=== PATIENT | male | born 1940 | race Caucasian/White ===

== ENCOUNTER 2023-04-05 12:12 | Emergency (ER) | payer OTHER, MEDICAID ==
[~2023-04-05] VITALS: Ht 185.4 cm; Wt 86.4 kg
[~2023-04-05 12:12] MED LIST: DIAZ5TAB PO
[2023-04-05 12:14] VITALS: TEMP 98.4
[2023-04-05 13:00] LABS: BASOPHILS % (AUTO) 0.3 % (0-1); EOSINOPHILS # (AUTO) 0.1 X10'3 (0-0.9); EOSINOPHILS % (AUTO) 1.5 % (0-6); HEMATOCRIT 45.3 % (42.0-52.0); HEMOGLOBIN 15.2 g/dl (14.0-17.9); LYMPHOCYTES % (AUTO) 13.9 % (21-51); MEAN CORPUSCULAR HEMOGLOBIN 31.7 PG (27.0-31.0); MEAN CORPUSCULAR HGB CONC 33.6 g/dL (33.0-36.5); MEAN CORPUSCULAR VOLUME 94.3 FL (78-98); MEAN PLATELET VOLUME 8.3 FL (7.4-10.4); MONOCYTES # (AUTO) 0.7 X10'3 (0-0.9); MONOCYTES % (AUTO) 10.6 % (2-12); NEUTROPHILS # (AUTO) 5.2 X10'3 (1.8-7.7); NEUTROPHILS % (AUTO) 73.7 % (42-75); PLATELET COUNT 290 X10'3 (140-440); RED CELL DISTRIBUTION WIDTH 12.5 % (11.5-14.5); WHITE BLOOD COUNT 7.1 X10'3 (4.5-11.0)
[2023-04-05 13:02] LABS: ALANINE AMINOTRANSFERASE 26 U/L (12-78); ALBUMIN 4.1 G/DL (3.4-5.0); ALBUMIN/GLOBULIN RATIO 1.1 (1.1-1.5); ALKALINE PHOSPHATASE 84 IU/L (46-116); ANION GAP 10 (8-16); ASPARTATE AMINO TRANSFERASE 24 U/L (10-37); BLOOD UREA NITROGEN 22 MG/DL (7-18); BUN/CREATININE RATIO 13.5 (10.0-20.0); CALCIUM 9.5 MG/DL (8.5-10.1); CHLORIDE 101 MMOL/L (99-107); CREATININE 1.63 MG/DL (0.60-1.10); GLUCOSE 118 MG/DL (70-104); POTASSIUM 4.5 MMOL/L (3.5-5.1); SODIUM 136 MMOL/L (135-145); TOTAL CARBON DIOXIDE 25.4 MMOL/L (24-32); TOTAL PROTEIN 7.8 G/DL (6.4-8.2); eCRCL 40 ML/MIN; eGFR 41 ML/MIN
[2023-04-05 14:02] LABS: CLARITY,URINE CLOUDY (Clear); COLOR,URINE RED (Yellow)
[2023-04-05 14:03] LABS: UA COLLECTION TYPE CLN CATCH MIDSTREAM
[2023-04-05 14:21] LABS: RBC,URINE TNTC /HPF (0-2)
[2023-04-05 14:26] VITALS: BP 149/94; PULSE 66; RESP 18; O2SAT 97
[2023-04-05 14:37] LABS: BACTERIA,URINE FEW /HPF (Neg); MUCUS STRANDS MANY /LPF (Neg); RENAL CELLS, URINE FEW /HPF; SQUAMOUS EPITHELIAL CELL,UR FEW /LPF (FEW); WBC CLUMPS,URINE FEW /HPF (NEGATIVE)
[2023-04-05 14:38] LABS: TRANSITIONAL EPI CELLS,URINE MANY /HPF
[2023-04-05] MEDS ORDERED: AMOX-117 PO (15:00)
[2023-04-05] MEDS ORDERED: amox tr/potassium clavulanate 875/125mg TAB PO ONE (15:05)
== END 2023-04-05 15:14 | disposition home or self-care (01) ==
LOC: ER 12:13
DX: N39.0 Urinary tract infection, site not specified (principal); Z79.899 Other long term (current) drug therapy; Z79.2 Long term (current) use of antibiotics
CPT/HCPCS: 36415; 80053; 81001; 85025; 87088; 99283

== ENCOUNTER 2023-04-07 14:26 | Emergency (ER) | payer OTHER, MEDICAID ==
[~2023-04-07] VITALS: Ht 182.9 cm; Wt 86.4 kg
[~2023-04-07 14:26] MED LIST changes: +AMOX-117 PO
[2023-04-07 14:41] VITALS: BP 128/83; PULSE 76; RESP 18; TEMP 99.6; O2SAT 97
== END 2023-04-07 23:37 | disposition left against medical advice (07) ==
LOC: ER 14:26
DX: R31.9 Hematuria, unspecified (principal); Z53.21 Procedure and treatment not carried out due to patient leaving prior to being seen by health care provider
CPT/HCPCS: 99281

== ENCOUNTER 2023-04-14 12:03 | Emergency (ER) | payer OTHER, MEDICAID ==
[~2023-04-14] VITALS: Ht 182.9 cm; Wt 86.4 kg
[~2023-04-14 12:03] MED LIST changes: -AMOX-117 PO
[2023-04-14 12:26] VITALS: TEMP 98.4
[2023-04-14 13:10] LABS: BASOPHILS % (AUTO) 0.5 % (0-1); EOSINOPHILS # (AUTO) 0.1 X10'3 (0-0.9); EOSINOPHILS % (AUTO) 1.1 % (0-6); HEMATOCRIT 43.4 % (42.0-52.0); HEMOGLOBIN 14.2 g/dl (14.0-17.9); LYMPHOCYTES # (AUTO) 0.9 X10'3 (1.1-4.8); LYMPHOCYTES % (AUTO) 14.1 % (21-51); MEAN CORPUSCULAR HGB CONC 32.7 g/dL (33.0-36.5); MEAN CORPUSCULAR VOLUME 94.7 FL (78-98); MONOCYTES # (AUTO) 0.7 X10'3 (0-0.9); MONOCYTES % (AUTO) 10.5 % (2-12); NEUTROPHILS # (AUTO) 4.7 X10'3 (1.8-7.7); NEUTROPHILS % (AUTO) 73.8 % (42-75); PLATELET COUNT 274 X10'3 (140-440); RED BLOOD COUNT 4.59 X10'6 (4.70-6.10); RED CELL DISTRIBUTION WIDTH 12.8 % (11.5-14.5); WHITE BLOOD COUNT 6.4 X10'3 (4.5-11.0)
[2023-04-14 13:21] LABS: CLARITY,URINE TURBID (Clear); COLOR,URINE RED (Yellow); UA COLLECTION TYPE VOIDED
[2023-04-14 13:23] LABS: RBC,URINE TNTC /HPF (0-2)
[2023-04-14 13:24] LABS: WBC,URINE 50-100 /HPF (0-4)
[2023-04-14 13:24] LABS: ALANINE AMINOTRANSFERASE 21 U/L (12-78); ALBUMIN 3.7 G/DL (3.4-5.0); ALKALINE PHOSPHATASE 73 IU/L (46-116); ANION GAP 9 (8-16); ASPARTATE AMINO TRANSFERASE 17 U/L (10-37); BILIRUBIN,TOTAL 1.1 MG/DL (0.1-1.0); BLOOD UREA NITROGEN 26 MG/DL (7-18); BUN/CREATININE RATIO 16.9 (10.0-20.0); CHLORIDE 102 MMOL/L (99-107); CREATININE 1.54 MG/DL (0.60-1.10); GLUCOSE 104 MG/DL (70-104); LIPASE 67 U/L (73-393); POTASSIUM 4.3 MMOL/L (3.5-5.1); SODIUM 137 MMOL/L (135-145); TOTAL CARBON DIOXIDE 26.3 MMOL/L (24-32); TOTAL PROTEIN 7.4 G/DL (6.4-8.2); eCRCL 42 ML/MIN; eGFR 44 ML/MIN
[2023-04-14 13:26] LABS: BACTERIA,URINE NONE SEEN /HPF (Neg); MUCUS STRANDS NONE SEEN /LPF (Neg); SQUAMOUS EPITHELIAL CELL,UR MODERATE /LPF (FEW)
[2023-04-14] MEDS ORDERED: oxyCODONE/APAP 5-325mg tablet PO ONE (15:35)
[2023-04-14] MEDS ORDERED: NO HOME MEDS (16:59)
[2023-04-14] MEDS ORDERED: ciprofloxacin 250mg tablet PO ONE (19:20)
[2023-04-14] MEDS ORDERED: phenazopyridine 100mg tablet PO ONE (19:20)
[2023-04-14] MEDS ORDERED: CefTRIAXone 1000mg IM Kit (w/lidocaine diluent) IM ONE (19:20)
[2023-04-14] MEDS ORDERED: CIPR-202 PO (19:26)
[2023-04-14] MEDS ORDERED: PHEN-824 PO (19:26)
[2023-04-14] MEDS ORDERED: normal saline 1000ml 1,000 ML IVB ONE (19:45)
[2023-04-14 20:06] VITALS: BP 154/89; PULSE 89; RESP 18; O2SAT 100
== END 2023-04-14 20:12 | disposition home or self-care (01) ==
LOC: ER 12:04
DX: N39.0 Urinary tract infection, site not specified (principal); Z79.899 Other long term (current) drug therapy
CPT/HCPCS: 36415; 80053; 81001; 83690; 85025; 87088; 96372; 99283; J0696

== ENCOUNTER 2023-05-16 13:55 | Emergency (ER) | payer OTHER, MEDICAID ==
[~2023-05-16] VITALS: Ht 182.9 cm; Wt 75.8 kg
[~2023-05-16 13:55] MED LIST changes: -DIAZ5TAB PO; +NO HOME MEDS; +PHEN-824 PO
[2023-05-16 14:34] LABS: BILIRUBIN,URINE SMALL (Neg); CLARITY,URINE CLOUDY (Clear); COLOR,URINE YELLOW (Yellow); GLUCOSE, URINE NEGATIVE (Neg); KETONES,URINE TRACE mg/dl (Neg); LEUKOCYTE ESTERASE ,URINE TRACE (Neg); NITRITES, URINE NEGATIVE (Neg); OCCULT BLOOD,URINE LARGE (Neg); PH,URINE 5.5 (4.8-8.0); PROTEIN,URINE 100 mg/dl (Neg)
[2023-05-16 14:35] LABS: BASOPHILS % (AUTO) 0.2 % (0-1); EOSINOPHILS # (AUTO) 0.1 X10'3 (0-0.9); EOSINOPHILS % (AUTO) 1.4 % (0-6); HEMATOCRIT 38.6 % (42.0-52.0); HEMOGLOBIN 12.7 g/dl (14.0-17.9); LYMPHOCYTES # (AUTO) 0.9 X10'3 (1.1-4.8); LYMPHOCYTES % (AUTO) 12.6 % (21-51); MEAN CORPUSCULAR HEMOGLOBIN 30.8 PG (27.0-31.0); MEAN CORPUSCULAR VOLUME 93.3 FL (78-98); MEAN PLATELET VOLUME 7.3 FL (7.4-10.4); MONOCYTES # (AUTO) 0.9 X10'3 (0-0.9); NEUTROPHILS # (AUTO) 5.4 X10'3 (1.8-7.7); NEUTROPHILS % (AUTO) 73.8 % (42-75); PLATELET COUNT 284 X10'3 (140-440); RED BLOOD COUNT 4.14 X10'6 (4.70-6.10); RED CELL DISTRIBUTION WIDTH 12.4 % (11.5-14.5); WHITE BLOOD COUNT 7.3 X10'3 (4.5-11.0)
[2023-05-16 14:35] LABS: UA COLLECTION TYPE CLN CATCH MIDSTREAM
[2023-05-16 14:42] LABS: MUCUS STRANDS MANY /LPF (Neg); RBC,URINE TNTC /HPF (0-2); SQUAMOUS EPITHELIAL CELL,UR FEW /LPF (FEW); TRANSITIONAL EPI CELLS,URINE MANY /HPF
[2023-05-16 14:43] LABS: WBC,URINE TNTC /HPF (0-4)
[2023-05-16 14:44] LABS: AMORPHOUS URATES 1+; BACTERIA,URINE FEW /HPF (Neg)
[2023-05-16 14:49] LABS: ALANINE AMINOTRANSFERASE 20 U/L (12-78); ALBUMIN 3.2 G/DL (3.4-5.0); ALBUMIN/GLOBULIN RATIO 0.8 (1.1-1.5); ALKALINE PHOSPHATASE 83 IU/L (46-116); ANION GAP 10 (8-16); ASPARTATE AMINO TRANSFERASE 20 U/L (10-37); BILIRUBIN,TOTAL 0.4 MG/DL (0.1-1.0); BLOOD UREA NITROGEN 24 MG/DL (7-18); BUN/CREATININE RATIO 14.5 (10.0-20.0); CALCIUM 8.9 MG/DL (8.5-10.1); CHLORIDE 104 MMOL/L (99-107); CREATININE 1.66 MG/DL (0.60-1.10); GLUCOSE 122 MG/DL (70-104); SODIUM 139 MMOL/L (135-145); TOTAL CARBON DIOXIDE 25.4 MMOL/L (24-32); TOTAL PROTEIN 7.3 G/DL (6.4-8.2); eCRCL 38 ML/MIN; eGFR 40 ML/MIN
[2023-05-16 14:50] LABS: LIPASE 25 U/L (16-77)
[2023-05-16] MEDS ORDERED: CEFD300C3 PO (16:51)
[2023-05-16 17:31] VITALS: BP 127/75; PULSE 68; RESP 18; TEMP 97.4; O2SAT 97
== END 2023-05-16 17:33 | disposition home or self-care (01) ==
LOC: ER 13:56
DX: N39.0 Urinary tract infection, site not specified (principal)
CPT/HCPCS: 36415; 80053; 81001; 83690; 85025; 87088; 99283

== ENCOUNTER 2023-05-31 13:00 | Emergency (ER) | payer OTHER, MEDICAID ==
[~2023-05-31] VITALS: Ht 182.9 cm; Wt 75.9 kg
[~2023-05-31 13:00] MED LIST changes: +CEFD300C3 PO
[2023-05-31 14:25] LABS: CLARITY,URINE TURBID (Clear); COLOR,URINE AMBER (Yellow); UA COLLECTION TYPE CLN CATCH MIDSTREAM
[2023-05-31 14:30] LABS: SQUAMOUS EPITHELIAL CELL,UR FEW /LPF (FEW)
[2023-05-31 14:31] LABS: CAL OXALATE CRYSTALS 4+ /HPF (NEGATIVE); RBC,URINE TNTC /HPF (0-2); TRANSITIONAL EPI CELLS,URINE MANY /HPF; WBC,URINE TNTC /HPF (0-4)
[2023-05-31 14:32] LABS: HYALINE CASTS >30 /LPF (NEGATIVE); MUCUS STRANDS MANY /LPF (Neg)
[2023-05-31 14:33] LABS: BACTERIA,URINE FEW /HPF (Neg)
[2023-05-31 14:43] LABS: BASOPHILS % (AUTO) 0.2 % (0-1); EOSINOPHILS # (AUTO) 0.1 X10'3 (0-0.9); EOSINOPHILS % (AUTO) 0.8 % (0-6); HEMATOCRIT 39.8 % (42.0-52.0); HEMOGLOBIN 13.2 g/dl (14.0-17.9); LYMPHOCYTES # (AUTO) 0.9 X10'3 (1.1-4.8); LYMPHOCYTES % (AUTO) 9.4 % (21-51); MEAN CORPUSCULAR HEMOGLOBIN 30.5 PG (27.0-31.0); MEAN CORPUSCULAR HGB CONC 33.2 g/dL (33.0-36.5); MEAN CORPUSCULAR VOLUME 91.9 FL (78-98); MEAN PLATELET VOLUME 7.6 FL (7.4-10.4); MONOCYTES # (AUTO) 0.8 X10'3 (0-0.9); NEUTROPHILS # (AUTO) 7.7 X10'3 (1.8-7.7); NEUTROPHILS % (AUTO) 81.6 % (42-75); PLATELET COUNT 356 X10'3 (140-440); RED BLOOD COUNT 4.33 X10'6 (4.70-6.10); RED CELL DISTRIBUTION WIDTH 12.5 % (11.5-14.5); WHITE BLOOD COUNT 9.5 X10'3 (4.5-11.0)
[2023-05-31 15:00] LABS: ALANINE AMINOTRANSFERASE 23 U/L (12-78); ALBUMIN 3.6 G/DL (3.4-5.0); ALBUMIN/GLOBULIN RATIO 0.9 (1.1-1.5); ALKALINE PHOSPHATASE 91 IU/L (46-116); ANION GAP 9 (8-16); ASPARTATE AMINO TRANSFERASE 16 U/L (10-37); BILIRUBIN,TOTAL 0.5 MG/DL (0.1-1.0); BLOOD UREA NITROGEN 26 MG/DL (7-18); BUN/CREATININE RATIO 15.2 (10.0-20.0); CALCIUM 9.5 MG/DL (8.5-10.1); CHLORIDE 103 MMOL/L (99-107); CREATININE 1.71 MG/DL (0.60-1.10); GLUCOSE 106 MG/DL (70-104); SODIUM 138 MMOL/L (135-145); TOTAL CARBON DIOXIDE 26.4 MMOL/L (24-32); TOTAL PROTEIN 7.8 G/DL (6.4-8.2); eCRCL 37 ML/MIN; eGFR 39 ML/MIN
[2023-05-31 18:09] VITALS: BP 164/87; PULSE 77; TEMP 97.9; O2SAT 99
[2023-05-31 18:19] VITALS: RESP 16
[2023-05-31] MEDS ORDERED: CefTRIAXone 2gm/D5W 50ml BAG 50 ML IV ONE (18:25)
[2023-05-31] MEDS ORDERED: ciprofloxacin 250mg tablet PO ONE (18:45)
[2023-05-31] MEDS ORDERED: CIPR-259 PO (18:49)
== END 2023-05-31 19:21 | disposition home or self-care (01) ==
LOC: ER 13:01
DX: R31.9 Hematuria, unspecified (principal); R10.30 Lower abdominal pain, unspecified; Z98.890 Other specified postprocedural states; Z79.899 Other long term (current) drug therapy
CPT/HCPCS: 36415; 74176; 80053; 81001; 85025; 87088; 99284

== ENCOUNTER 2023-08-01 16:13 | Emergency (ER) | payer OTHER, MEDICAID ==
[~2023-08-01] VITALS: Ht 185.4 cm; Wt 86.4 kg
[2023-08-01 16:29] VITALS: TEMP 97.1
[2023-08-01 18:04] LABS: BASOPHILS % (AUTO) 0.2 % (0-1); EOSINOPHILS # (AUTO) 0.1 X10'3 (0-0.9); EOSINOPHILS % (AUTO) 0.7 % (0-6); HEMATOCRIT 33.5 % (42.0-52.0); HEMOGLOBIN 11.1 g/dl (14.0-17.9); LYMPHOCYTES # (AUTO) 0.6 X10'3 (1.1-4.8); LYMPHOCYTES % (AUTO) 7.3 % (21-51); MEAN CORPUSCULAR HEMOGLOBIN 29.3 PG (27.0-31.0); MEAN CORPUSCULAR HGB CONC 33.2 g/dL (33.0-36.5); MEAN CORPUSCULAR VOLUME 88.1 FL (78-98); MEAN PLATELET VOLUME 7.2 FL (7.4-10.4); MONOCYTES # (AUTO) 0.6 X10'3 (0-0.9); MONOCYTES % (AUTO) 7.1 % (2-12); NEUTROPHILS # (AUTO) 6.9 X10'3 (1.8-7.7); NEUTROPHILS % (AUTO) 84.7 % (42-75); PLATELET COUNT 322 X10'3 (140-440); RED BLOOD COUNT 3.81 X10'6 (4.70-6.10); WHITE BLOOD COUNT 8.2 X10'3 (4.5-11.0)
[2023-08-01 18:05] LABS: APTT 32 SECONDS (22-32); INR 1.1 INR; PROTHROMBIN TIME 11.5 SECONDS (9.0-12.0)
[2023-08-01 18:08] LABS: ALANINE AMINOTRANSFERASE 14 U/L (12-78); ALBUMIN 3.1 G/DL (3.4-5.0); ALBUMIN/GLOBULIN RATIO 0.8 (1.1-1.5); ALKALINE PHOSPHATASE 94 IU/L (46-116); ANION GAP 5 (8-16); ASPARTATE AMINO TRANSFERASE 19 U/L (10-37); BILIRUBIN,TOTAL 0.3 MG/DL (0.1-1.0); BLOOD UREA NITROGEN 31 MG/DL (7-18); BUN/CREATININE RATIO 20.1 (10.0-20.0); CALCIUM 9.2 MG/DL (8.5-10.1); CHLORIDE 103 MMOL/L (99-107); CREATININE 1.54 MG/DL (0.60-1.10); GLUCOSE 155 MG/DL (70-104); POTASSIUM 4.7 MMOL/L (3.5-5.1); SODIUM 137 MMOL/L (135-145); TOTAL CARBON DIOXIDE 28.8 MMOL/L (24-32); TOTAL PROTEIN 7.2 G/DL (6.4-8.2); eCRCL 43 ML/MIN; eGFR 44 ML/MIN
[2023-08-01 22:23] VITALS: BP 115/87; PULSE 83; RESP 14; O2SAT 98
[2023-08-02 00:07] LABS: BILIRUBIN,URINE SMALL (Neg); CLARITY,URINE CLOUDY (Clear); COLOR,URINE AMBER (Yellow); GLUCOSE, URINE NEGATIVE (Neg); KETONES,URINE TRACE mg/dl (Neg); LEUKOCYTE ESTERASE ,URINE TRACE (Neg); NITRITES, URINE NEGATIVE (Neg); OCCULT BLOOD,URINE LARGE (Neg); PH,URINE 5.5 (4.8-8.0); PROTEIN,URINE >=300 mg/dl (Neg)
[2023-08-02 00:08] LABS: UA COLLECTION TYPE CLN CATCH MIDSTREAM
[2023-08-02 00:34] LABS: BACTERIA,URINE FEW /HPF (Neg); CAL OXALATE CRYSTALS 1+ /HPF (NEGATIVE); MUCUS STRANDS MODERATE /LPF (Neg); RBC,URINE 20-50 /HPF (0-2); SQUAMOUS EPITHELIAL CELL,UR FEW /LPF (FEW); WBC,URINE 30-50 /HPF (0-4)
[2023-08-02] MEDS ORDERED: CEPH-585 PO (00:37)
[2023-08-02] MEDS ORDERED: cephalexin 250mg capsule PO ONE (00:40)
== END 2023-08-02 00:50 | disposition home or self-care (01) ==
LOC: ER 16:14
DX: N39.0 Urinary tract infection, site not specified (principal); R31.9 Hematuria, unspecified; I10 Essential (primary) hypertension; Z79.2 Long term (current) use of antibiotics; Z79.899 Other long term (current) drug therapy
CPT/HCPCS: 36415; 80053; 81001; 81003; 85025; 85610; 85730; 87088; 99283

== ENCOUNTER 2023-08-08 10:25 | Emergency (ER) | payer MEDICARE, MEDICAID ==
[~2023-08-08] VITALS: Ht 182.9 cm; Wt 79.9 kg
[~2023-08-08 10:25] MED LIST changes: +CEPH-585 PO
[2023-08-08 11:26] LABS: BILIRUBIN,URINE NEGATIVE (Neg); CLARITY,URINE CLOUDY (Clear); COLOR,URINE YELLOW (Yellow); GLUCOSE, URINE NEGATIVE (Neg); KETONES,URINE TRACE mg/dl (Neg); LEUKOCYTE ESTERASE ,URINE SMALL (Neg); NITRITES, URINE NEGATIVE (Neg); OCCULT BLOOD,URINE MODERATE (Neg); PH,URINE 5.5 (4.8-8.0); PROTEIN,URINE 100 mg/dl (Neg); UROBILINOGEN,URINE 0.2 E.U/dL (0.2-1.0)
[2023-08-08 11:30] LABS: UA COLLECTION TYPE CLN CATCH MIDSTREAM
[2023-08-08 11:31] LABS: WBC,URINE TNTC /HPF (0-4)
[2023-08-08 11:32] LABS: BACTERIA,URINE FEW /HPF (Neg); MUCUS STRANDS NONE SEEN /LPF (Neg); SQUAMOUS EPITHELIAL CELL,UR MODERATE /LPF (FEW)
[2023-08-08 11:33] LABS: TRANSITIONAL EPI CELLS,URINE FEW /HPF
[2023-08-08 12:26] VITALS: BP 130/67; PULSE 80; RESP 16; O2SAT 97
[2023-08-08] MEDS ORDERED: ciprofloxacin 250mg tablet PO ONE (13:35)
[2023-08-08] MEDS ORDERED: CIPR-259 PO (13:56)
[2023-08-08 14:01] VITALS: TEMP 97.7
== END 2023-08-08 14:04 | disposition home or self-care (01) ==
LOC: ER 10:26
DX: J06.9 Acute upper respiratory infection, unspecified (principal); I10 Essential (primary) hypertension; Z79.2 Long term (current) use of antibiotics; Z79.899 Other long term (current) drug therapy
CPT/HCPCS: 81001; 87088; 99283

== ENCOUNTER 2023-08-12 17:25 | Inpatient (IN) | payer MEDICARE, MEDICAID ==
[~2023-08-12] VITALS: Ht 182.9 cm; Wt 79.4 kg
[~2023-08-12 17:25] MED LIST changes: +CIPR-259 PO
[2023-08-12 18:33] LABS: BILIRUBIN,URINE NEGATIVE (Neg); CLARITY,URINE CLOUDY (Clear); COLOR,URINE YELLOW (Yellow); GLUCOSE, URINE NEGATIVE (Neg); KETONES,URINE NEGATIVE (Neg); LEUKOCYTE ESTERASE ,URINE LARGE (Neg); NITRITES, URINE NEGATIVE (Neg); OCCULT BLOOD,URINE MODERATE (Neg); PROTEIN,URINE 100 mg/dl (Neg); UROBILINOGEN,URINE 0.2 E.U/dL (0.2-1.0)
[2023-08-12 18:45] LABS: UA COLLECTION TYPE NON-SPECIFIED
[2023-08-12 18:46] LABS: SQUAMOUS EPITHELIAL CELL,UR MODERATE /LPF (FEW)
[2023-08-12 18:47] LABS: WBC,URINE TNTC /HPF (0-4)
[2023-08-12 18:48] LABS: BACTERIA,URINE 2+ /HPF (Neg)
[2023-08-12] MEDS: CefTRIAXone/D5W-Rocephin 1gm 50 ML IV ONE (19:59)
[2023-08-12] MEDS: normal saline 1000ML IV soln IVB ONE (19:59)
[2023-08-12] MEDS: morphine 2 MG/ML inj. syringe IV ONE (19:59)
[2023-08-12 20:25] LABS: BASOPHILS % (AUTO) 0.2 % (0-1); EOSINOPHILS % (AUTO) 0.1 % (0-6); HEMATOCRIT 35.4 % (42.0-52.0); HEMOGLOBIN 11.4 g/dl (14.0-17.9); LYMPHOCYTES # (AUTO) 0.5 X10'3 (1.1-4.8); LYMPHOCYTES % (AUTO) 3.2 % (21-51); MEAN CORPUSCULAR HEMOGLOBIN 27.9 PG (27.0-31.0); MEAN CORPUSCULAR HGB CONC 32.2 g/dL (33.0-36.5); MEAN CORPUSCULAR VOLUME 86.8 FL (78-98); MEAN PLATELET VOLUME 7.5 FL (7.4-10.4); MONOCYTES # (AUTO) 1.6 X10'3 (0-0.9); MONOCYTES % (AUTO) 10.2 % (2-12); NEUTROPHILS # (AUTO) 13.8 X10'3 (1.8-7.7); NEUTROPHILS % (AUTO) 86.3 % (42-75); PLATELET COUNT 450 X10'3 (140-440); RED BLOOD COUNT 4.08 X10'6 (4.70-6.10); RED CELL DISTRIBUTION WIDTH 13.4 % (11.5-14.5)
[2023-08-12 21:12] LABS: ALBUMIN 2.6 G/DL (3.4-5.0); ANION GAP 15 (8-16); BLOOD UREA NITROGEN 107 MG/DL (7-18); BUN/CREATININE RATIO 15.1 (10.0-20.0); CALCIUM 8.9 MG/DL (8.5-10.1); CHLORIDE 96 MMOL/L (99-107); CREATININE 7.07 MG/DL (0.60-1.10); GLUCOSE 124 MG/DL (70-104); POTASSIUM 4.2 MMOL/L (3.5-5.1); SODIUM 130 MMOL/L (135-145); TOTAL CARBON DIOXIDE 19.2 MMOL/L (24-32); eCRCL 9 ML/MIN; eGFR 8 ML/MIN
[2023-08-12] MEDS ORDERED: LIDOcaine 2% 10ml TOPICAL JELLY (Urojet) MM ONE (22:15)
[2023-08-12] MEDS: LidoCAINE 2% Topical Jelly 11mL syringe TOP ONE (22:38)
[2023-08-12] MEDS ORDERED: acetaminophen 325mg tablet PO PRN (22:50)
[2023-08-12] MEDS ORDERED: magnesium 2GM in 50ml NS 50 ML IV PRN (22:50)
[2023-08-12] MEDS ORDERED: diphenhydrAMINE 25mg capsule PO PRN (22:50)
[2023-08-12] MEDS ORDERED: potassium Cl 20 mEq SR tablet PO PRN ×2 (22:50)
[2023-08-12] MEDS ORDERED: potassium Cl 40MEQ/1/2NS 520ml 520 ML IV PRN (22:50)
[2023-08-12] MEDS ORDERED: magnesium 4gm in 100ml NS 100 ML IV PRN (22:50)
[2023-08-12] MEDS ORDERED: ondansetron/PF 4mg/2ml inj IV PRN (22:50)
[2023-08-12] MEDS ORDERED: HYDROmorphone inj. 0.5 MG/0.5 ML DISP.SYRIN IV PRN (23:25)
[2023-08-12] MEDS ORDERED: HYDROmorphone/PF 0.2 MG/ML SYRINGE IV PRN (23:25)
[2023-08-12] MEDS: normal saline 1000ml 1,000 ML IV SCH (23:37)
[2023-08-12] MEDS: normal saline 1000ml 1,000 ML IVB ONE (23:37)
[2023-08-12] MEDS: HYDROmorphone 1 mg/ml syringe IV STA (23:50)
[2023-08-13] MEDS: LidoCAINE 2% Topical Jelly 11mL syringe TOP ONE (02:04)
[2023-08-13 04:44] LABS: BASOPHILS % (AUTO) 0.1 % (0-1); EOSINOPHILS % (AUTO) 0.1 % (0-6); HEMATOCRIT 32.6 % (42.0-52.0); HEMOGLOBIN 10.6 g/dl (14.0-17.9); LYMPHOCYTES # (AUTO) 0.4 X10'3 (1.1-4.8); LYMPHOCYTES % (AUTO) 2.4 % (21-51); MEAN CORPUSCULAR HEMOGLOBIN 28.2 PG (27.0-31.0); MEAN CORPUSCULAR HGB CONC 32.4 g/dL (33.0-36.5); MEAN CORPUSCULAR VOLUME 86.9 FL (78-98); MEAN PLATELET VOLUME 7.4 FL (7.4-10.4); MONOCYTES # (AUTO) 1.5 X10'3 (0-0.9); MONOCYTES % (AUTO) 9.1 % (2-12); NEUTROPHILS # (AUTO) 14.7 X10'3 (1.8-7.7); NEUTROPHILS % (AUTO) 88.3 % (42-75); PLATELET COUNT 376 X10'3 (140-440); RED BLOOD COUNT 3.76 X10'6 (4.70-6.10); RED CELL DISTRIBUTION WIDTH 13.5 % (11.5-14.5); WHITE BLOOD COUNT 16.7 X10'3 (4.5-11.0)
[2023-08-13 06:01] LABS: OSMOLALITY 322 MOSM/K (280-300)
[2023-08-13 06:06] LABS: HEMOGLOBIN A1C 5.1 % (4.5-6.2)
[2023-08-13 06:20] LABS: ALANINE AMINOTRANSFERASE 19 U/L (12-78); ALBUMIN 2.2 G/DL (3.4-5.0); ALBUMIN/GLOBULIN RATIO 0.6 (1.1-1.5); ALKALINE PHOSPHATASE 74 IU/L (46-116); ANION GAP 13 (8-16); ASPARTATE AMINO TRANSFERASE 19 U/L (10-37); BILIRUBIN,TOTAL 0.4 MG/DL (0.1-1.0); BLOOD UREA NITROGEN 103 MG/DL (7-18); BUN/CREATININE RATIO 15.3 (10.0-20.0); CALCIUM 8.2 MG/DL (8.5-10.1); CHLORIDE 101 MMOL/L (99-107); CREATININE 6.72 MG/DL (0.60-1.10); GLUCOSE 113 MG/DL (70-104); MAGNESIUM 2.1 MG/DL (1.5-2.4); POTASSIUM 4.5 MMOL/L (3.5-5.1); SODIUM 134 MMOL/L (135-145); TOTAL CARBON DIOXIDE 19.7 MMOL/L (24-32); TOTAL PROTEIN 6.2 G/DL (6.4-8.2); eCRCL 10 ML/MIN; eGFR 8 ML/MIN
[2023-08-13] MEDS: K and/or MAG REPLACEMENT MC SCH (07:42)
[2023-08-13] MEDS: docusate sod 100mg capsule PO SCH (07:44)
[2023-08-13 08:56] LABS: INR 1.1 INR; PROTHROMBIN TIME 12.2 SECONDS (9.0-12.0)
[2023-08-13 09:09] LABS: APTT 34 SECONDS (22-32)
[2023-08-13 12:45] VITALS: BP 120/69; PULSE 75; RESP 15; RESP 16; TEMP 98; O2SAT 98
[2023-08-13] MEDS: HYDROmorphone 1 mg/ml syringe IV PRN (13:19)
[2023-08-13 18:00] VITALS: BP 110/65; PULSE 76; RESP 18; TEMP 98; O2SAT 98
[2023-08-13 20:00] VITALS: RESP 18; O2SAT 98
[2023-08-13] MEDS: CefTRIAXone/D5W-Rocephin 1gm 50 ML IV SCH (20:05)
[2023-08-13 22:00] VITALS: BP 159/86; PULSE 77; RESP 14; TEMP 98.1; O2SAT 98
[2023-08-13] MEDS: magnesium hydroxide 30ml (MOM) UD suspension PO PRN (23:00)
[2023-08-14 06:58] LABS: ALANINE AMINOTRANSFERASE 24 U/L (12-78); ALBUMIN 2.1 G/DL (3.4-5.0); ALBUMIN/GLOBULIN RATIO 0.6 (1.1-1.5); ALKALINE PHOSPHATASE 72 IU/L (46-116); ANION GAP 13 (8-16); ASPARTATE AMINO TRANSFERASE 25 U/L (10-37); BASOPHILS % (AUTO) 0.1 % (0-1); BILIRUBIN,TOTAL 0.3 MG/DL (0.1-1.0); BLOOD UREA NITROGEN 59 MG/DL (7-18); BUN/CREATININE RATIO 24.4 (10.0-20.0); CHLORIDE 105 MMOL/L (99-107); CREATININE 2.42 MG/DL (0.60-1.10); EOSINOPHILS # (AUTO) 0.1 X10'3 (0-0.9); EOSINOPHILS % (AUTO) 0.7 % (0-6); GLUCOSE 99 MG/DL (70-104); HEMATOCRIT 30.9 % (42.0-52.0); HEMOGLOBIN 10.3 g/dl (14.0-17.9); LYMPHOCYTES # (AUTO) 0.8 X10'3 (1.1-4.8); LYMPHOCYTES % (AUTO) 7.2 % (21-51); MAGNESIUM 1.7 MG/DL (1.5-2.4); MEAN CORPUSCULAR HEMOGLOBIN 28.6 PG (27.0-31.0); MEAN CORPUSCULAR HGB CONC 33.2 g/dL (33.0-36.5); MEAN PLATELET VOLUME 6.9 FL (7.4-10.4); MONOCYTES % (AUTO) 9.3 % (2-12); NEUTROPHILS # (AUTO) 9.1 X10'3 (1.8-7.7); NEUTROPHILS % (AUTO) 82.7 % (42-75); PLATELET COUNT 349 X10'3 (140-440); RED BLOOD COUNT 3.59 X10'6 (4.70-6.10); RED CELL DISTRIBUTION WIDTH 13.4 % (11.5-14.5); SODIUM 139 MMOL/L (135-145); TOTAL CARBON DIOXIDE 21.5 MMOL/L (24-32); TOTAL PROTEIN 5.9 G/DL (6.4-8.2); eCRCL 27 ML/MIN; eGFR 26 ML/MIN
[2023-08-14] MEDS: HYDROcodone/acetaminophen 5mg/325mg tablet PO PRN (07:49)
[2023-08-14 09:45] VITALS: BP 121/73; PULSE 74; RESP 16; TEMP 98.1; O2SAT 96
[2023-08-14] MEDS: HYDROcodone/acetaminophen 10/325mg tab PO PRN (15:59)
[2023-08-14] MEDS: bisacodyl 10mg suppository rectal RC PRN (16:54)
[2023-08-14 18:00] VITALS: BP 121/57; PULSE 71; RESP 16; TEMP 98.3; O2SAT 95
[2023-08-14 18:45] VITALS: BP 154/92; PULSE 92; RESP 18; O2SAT 94
[2023-08-14 20:00] VITALS: RESP 18; O2SAT 97
[2023-08-14 22:00] VITALS: BP 145/79; PULSE 70; RESP 18; TEMP 98.6; O2SAT 97
[2023-08-15 06:00] VITALS: BP 154/90; PULSE 80; RESP 18; TEMP 98; O2SAT 95
[2023-08-15 06:46] LABS: ALANINE AMINOTRANSFERASE 35 U/L (12-78); ALBUMIN 2.1 G/DL (3.4-5.0); ALBUMIN/GLOBULIN RATIO 0.6 (1.1-1.5); ALKALINE PHOSPHATASE 71 IU/L (46-116); ANION GAP 7 (8-16); ASPARTATE AMINO TRANSFERASE 29 U/L (10-37); BILIRUBIN,TOTAL 0.3 MG/DL (0.1-1.0); BLOOD UREA NITROGEN 45 MG/DL (7-18); BUN/CREATININE RATIO 23.2 (10.0-20.0); CHLORIDE 107 MMOL/L (99-107); CREATININE 1.94 MG/DL (0.60-1.10); GLUCOSE 94 MG/DL (70-104); MAGNESIUM 1.7 MG/DL (1.5-2.4); POTASSIUM 4.4 MMOL/L (3.5-5.1); SODIUM 137 MMOL/L (135-145); TOTAL CARBON DIOXIDE 23.5 MMOL/L (24-32); TOTAL PROTEIN 5.7 G/DL (6.4-8.2); eCRCL 33 ML/MIN; eGFR 33 ML/MIN
[2023-08-15 07:02] LABS: BASOPHILS % (AUTO) 0 % (0-1); EOSINOPHILS # (AUTO) 0.2 X10'3 (0-0.9); EOSINOPHILS % (AUTO) 1.5 % (0-6); HEMATOCRIT 29.4 % (42.0-52.0); HEMOGLOBIN 9.7 g/dl (14.0-17.9); LYMPHOCYTES # (AUTO) 0.7 X10'3 (1.1-4.8); LYMPHOCYTES % (AUTO) 6.7 % (21-51); MEAN CORPUSCULAR HEMOGLOBIN 28.7 PG (27.0-31.0); MEAN CORPUSCULAR HGB CONC 33.1 g/dL (33.0-36.5); MEAN CORPUSCULAR VOLUME 86.8 FL (78-98); MEAN PLATELET VOLUME 6.8 FL (7.4-10.4); MONOCYTES % (AUTO) 9.7 % (2-12); NEUTROPHILS # (AUTO) 8.7 X10'3 (1.8-7.7); NEUTROPHILS % (AUTO) 82.1 % (42-75); PLATELET COUNT 280 X10'3 (140-440); RED BLOOD COUNT 3.39 X10'6 (4.70-6.10); RED CELL DISTRIBUTION WIDTH 13.6 % (11.5-14.5); WHITE BLOOD COUNT 10.6 X10'3 (4.5-11.0)
[2023-08-15 08:00] VITALS: RESP 18; O2SAT 95
[2023-08-15 10:00] VITALS: BP 138/73; PULSE 63; RESP 16; TEMP 97.6; O2SAT 96
[2023-08-15] MEDS ORDERED: AMLO5TAB16 PO (11:40)
== END 2023-08-15 16:50 | disposition home or self-care (01) | DRG 683 ==
LOC: ER 17:25 → ED HOLD 23:17 → UNDOADMIN 23:17 → ED HOLD 08-13 10:38 → ORTHO 4S 08-13 12:25
PROVIDERS: ADMIT Internal Medicine; ATTEND Family Medicine
PROC: 0T9B7ZZ Drainage of Bladder, Via Natural or Artificial Opening (ICD-10-PCS; principal; 2023-08-13)
DX: N17.0 Acute kidney failure with tubular necrosis (principal); E87.1 Hypo-osmolality and hyponatremia; N13.8 Other obstructive and reflux uropathy; N13.6 Pyonephrosis; N40.1 Benign prostatic hyperplasia with lower urinary tract symptoms; D64.9 Anemia, unspecified; N18.9 Chronic kidney disease, unspecified; I12.9 Hypertensive chronic kidney disease with stage 1 through stage 4 chronic kidney disease, or unspecified chronic kidney disease; N32.89 Other specified disorders of bladder; Z91.199 Patient's noncompliance with other medical treatment and regimen due to unspecified reason
CPT/HCPCS: 36415; 70450; 74176; 80048; 80053; 81001; 83036; 83605; 83735; 83930; 84145; 85025; 85610; 85730; 87040; 87081; 87088; 99285; A4314; A4340; A4358; A5200; A6212; G0378; J0696; J1170; J2270; J7030

== ENCOUNTER 2023-08-17 23:40 | Inpatient (IN) | payer MEDICARE, MEDICAID ==
[~2023-08-17] VITALS: Ht 182.9 cm; Wt 77.0 kg
[~2023-08-17 23:40] MED LIST changes: +AMLO5TAB16 PO; -CEPH-585 PO; -CIPR-259 PO
[2023-08-18] VITALS (8 sets, daily range): BP systolic 90–127; BP diastolic 58–65; PULSE 77–89; RESP 16–18; TEMP 97.6–97.8; O2SAT 97–100
[2023-08-18] MEDS ORDERED: pantoprazole 40 MG vial IV ONE (00:05)
[2023-08-18] MEDS ORDERED: LISI10TA27 PO (00:24)
[2023-08-18 00:28] LABS: BASOPHILS % (AUTO) 0.1 % (0-1); EOSINOPHILS # (AUTO) 0.1 X10'3 (0-0.9); EOSINOPHILS % (AUTO) 0.8 % (0-6); HEMATOCRIT 22.6 % (42.0-52.0); HEMOGLOBIN 7.4 g/dl (14.0-17.9); LYMPHOCYTES # (AUTO) 0.7 X10'3 (1.1-4.8); LYMPHOCYTES % (AUTO) 3.9 % (21-51); MEAN CORPUSCULAR HEMOGLOBIN 28.4 PG (27.0-31.0); MEAN CORPUSCULAR HGB CONC 32.9 g/dL (33.0-36.5); MEAN CORPUSCULAR VOLUME 86.2 FL (78-98); MEAN PLATELET VOLUME 6.8 FL (7.4-10.4); MONOCYTES # (AUTO) 0.9 X10'3 (0-0.9); MONOCYTES % (AUTO) 4.9 % (2-12); NEUTROPHILS # (AUTO) 16.2 X10'3 (1.8-7.7); NEUTROPHILS % (AUTO) 90.3 % (42-75); PLATELET COUNT 316 X10'3 (140-440); RED BLOOD COUNT 2.62 X10'6 (4.70-6.10); RED CELL DISTRIBUTION WIDTH 13.1 % (11.5-14.5); WHITE BLOOD COUNT 17.9 X10'3 (4.5-11.0)
[2023-08-18 00:29] LABS: BILIRUBIN,URINE NEGATIVE (Neg); CLARITY,URINE CLOUDY (Clear); COLOR,URINE YELLOW (Yellow); GLUCOSE, URINE NEGATIVE (Neg); KETONES,URINE NEGATIVE (Neg); LEUKOCYTE ESTERASE ,URINE MODERATE (Neg); NITRITES, URINE NEGATIVE (Neg); OCCULT BLOOD,URINE LARGE (Neg); PROTEIN,URINE 100 mg/dl (Neg); UROBILINOGEN,URINE 0.2 E.U/dL (0.2-1.0)
[2023-08-18 00:40] LABS: ALANINE AMINOTRANSFERASE 47 U/L (12-78); ALBUMIN 2.2 G/DL (3.4-5.0); ALBUMIN/GLOBULIN RATIO 0.8 (1.1-1.5); ALKALINE PHOSPHATASE 85 IU/L (46-116); ANION GAP 10 (8-16); ASPARTATE AMINO TRANSFERASE 44 U/L (10-37); BILIRUBIN,TOTAL 0.2 MG/DL (0.1-1.0); BLOOD UREA NITROGEN 45 MG/DL (7-18); BUN/CREATININE RATIO 32.6 (10.0-20.0); CALCIUM 7.5 MG/DL (8.5-10.1); CHLORIDE 105 MMOL/L (99-107); CREATININE 1.38 MG/DL (0.60-1.10); GLUCOSE 132 MG/DL (70-104); POTASSIUM 4.4 MMOL/L (3.5-5.1); SODIUM 138 MMOL/L (135-145); TOTAL CARBON DIOXIDE 23.2 MMOL/L (24-32); eCRCL 47 ML/MIN; eGFR 50 ML/MIN
[2023-08-18 00:41] LABS: UA COLLECTION TYPE FOLEY CATH
[2023-08-18 00:43] LABS: INR 1.1 INR; PROTHROMBIN TIME 11.9 SECONDS (9.0-12.0)
[2023-08-18 00:43] LABS: BACTERIA,URINE 2+ /HPF (Neg); MUCUS STRANDS FEW /LPF (Neg); SQUAMOUS EPITHELIAL CELL,UR FEW /LPF (FEW); TRANSITIONAL EPI CELLS,URINE FEW /HPF; WBC,URINE TNTC /HPF (0-4)
[2023-08-18 00:44] LABS: AMORPHOUS URATES 1+
[2023-08-18] MEDS ORDERED: normal saline 1000ml 1,000 ML IV ONE ×2 (00:50)
[2023-08-18] MEDS ORDERED: CefTRIAXone 2gm/D5W 50ml BAG 50 ML IV ONE (00:50)
[2023-08-18] MEDS ORDERED: mag hydrox/Alum hydrox/simeth 30ml oral suspension PO PRN (01:00)
[2023-08-18] MEDS ORDERED: magnesium hydroxide 30ml (MOM) UD suspension PO PRN (01:00)
[2023-08-18] MEDS ORDERED: ondansetron/PF 4mg/2ml inj IV PRN (01:00)
[2023-08-18] MEDS ORDERED: magnesium Cl slow-release 64mg tablet PO PRN (01:00)
[2023-08-18] MEDS ORDERED: potassium Cl 20 mEq SR tablet PO PRN ×2 (01:00)
[2023-08-18] MEDS ORDERED: acetaminophen 325mg tablet PO PRN (01:00)
[2023-08-18] MEDS ORDERED: magnesium 2GM in 50ml NS 50 ML IV PRN (01:00)
[2023-08-18] MEDS: normal saline 1000ml 1,000 ML IV SCH ×3 (01:00→22:54)
[2023-08-18] MEDS ORDERED: sodium chloride 0.45% 1,000 ML IV SCH (01:00)
[2023-08-18] MEDS ORDERED: magnesium 4gm in 100ml NS 100 ML IV PRN (01:00)
[2023-08-18] MEDS ORDERED: potassium Cl 40MEQ/1/2NS 520ml 520 ML IV PRN (01:00)
[2023-08-18] MEDS: docusate sod 100mg capsule PO SCH ×2 (08:10→23:01)
[2023-08-18] MEDS: metroNIDAZOLE-Flagyl 500mg/NS 100 ML IV SCH ×2 (08:11→22:55)
[2023-08-18] MEDS: pantoprazole 40MG/NS 100ML BAG 100 ML IV SCH ×2 (08:12→22:55)
[2023-08-18] MEDS: ciprofloxacin lact 400MG/200ML 200 ML IV SCH ×2 (09:46→22:55)
[2023-08-18] MEDS: acetaminophen 325mg tablet PO PRN (12:12)
[2023-08-18] MEDS ORDERED: HYDROcodone/acetaminophen 5mg/325mg tablet PO ONE (12:20)
[2023-08-18] MEDS ORDERED: fentaNYL/PF 50MCG/1 ML 2ML syringe ONE (14:06)
[2023-08-18] MEDS ORDERED: MIDAZolam 1 MG/ML 5ML VIAL ONE (14:06)
[2023-08-18] MEDS ORDERED: LIDOcaine Viscous 15ml cup ONE (14:07)
[2023-08-19] VITALS (8 sets, daily range): BP systolic 108–121; BP diastolic 58–65; PULSE 72–87; RESP 15–20; TEMP 97.7–98.2; O2SAT 94–100
[2023-08-19 07:44] LABS: BASOPHILS % (AUTO) 0.1 % (0-1); EOSINOPHILS # (AUTO) 0.1 X10'3 (0-0.9); EOSINOPHILS % (AUTO) 0.9 % (0-6); LYMPHOCYTES % (AUTO) 6.9 % (21-51); MEAN CORPUSCULAR HEMOGLOBIN 28.6 PG (27.0-31.0); MEAN CORPUSCULAR HGB CONC 32.8 g/dL (33.0-36.5); MEAN CORPUSCULAR VOLUME 87.2 FL (78-98); MONOCYTES % (AUTO) 7.1 % (2-12); NEUTROPHILS # (AUTO) 12.1 X10'3 (1.8-7.7); PLATELET COUNT 254 X10'3 (140-440); RED BLOOD COUNT 1.83 X10'6 (4.70-6.10); RED CELL DISTRIBUTION WIDTH 13.1 % (11.5-14.5); WHITE BLOOD COUNT 14.3 X10'3 (4.5-11.0)
[2023-08-19 07:49] LABS: HEMATOCRIT 15.9 % (42.0-52.0)
[2023-08-19 07:50] LABS: HEMOGLOBIN 5.2 g/dl (14.0-17.9)
[2023-08-19] MEDS: docusate sod 100mg capsule PO SCH ×2 (08:00→20:03)
[2023-08-19 08:11] LABS: ALANINE AMINOTRANSFERASE 31 U/L (12-78); ALBUMIN/GLOBULIN RATIO 0.8 (1.1-1.5); ALKALINE PHOSPHATASE 108 IU/L (46-116); ANION GAP 10 (8-16); ASPARTATE AMINO TRANSFERASE 32 U/L (10-37); BILIRUBIN,TOTAL 0.3 MG/DL (0.1-1.0); BLOOD UREA NITROGEN 43 MG/DL (7-18); CALCIUM 7.4 MG/DL (8.5-10.1); CHLORIDE 107 MMOL/L (99-107); CREATININE 1.23 MG/DL (0.60-1.10); GLUCOSE 87 MG/DL (70-104); POTASSIUM 3.9 MMOL/L (3.5-5.1); SODIUM 139 MMOL/L (135-145); TOTAL PROTEIN 4.6 G/DL (6.4-8.2); eCRCL 52 ML/MIN; eGFR 57 ML/MIN
[2023-08-19] MEDS: pantoprazole 40MG/NS 100ML BAG 100 ML IV SCH ×2 (09:02→20:03)
[2023-08-19] MEDS: acetaminophen 325mg tablet PO PRN (09:08)
[2023-08-19] MEDS ORDERED: FLU VACC QS2023-24(6MOS UP)/PF 60 MCG/0.5 ML SYRINGE IM ONE (10:00)
[2023-08-19] MEDS ORDERED: pneumococcal 23-VAL P-sac vacc 25 mcg/0.5ml vial IMVAC ONE (10:00)
[2023-08-19] MEDS: metroNIDAZOLE-Flagyl 500mg/NS 100 ML IV SCH ×2 (10:26→20:02)
[2023-08-19] MEDS: ciprofloxacin lact 400MG/200ML 200 ML IV SCH ×2 (11:32→20:03)
[2023-08-19] MEDS: normal saline 1000ml 1,000 ML IV SCH (11:32)
[2023-08-19 17:13] LABS: BASOPHILS % (AUTO) 0.2 % (0-1); EOSINOPHILS # (AUTO) 0.1 X10'3 (0-0.9); EOSINOPHILS % (AUTO) 0.7 % (0-6); LYMPHOCYTES # (AUTO) 0.7 X10'3 (1.1-4.8); LYMPHOCYTES % (AUTO) 5.2 % (21-51); MEAN CORPUSCULAR HEMOGLOBIN 28.3 PG (27.0-31.0); MEAN CORPUSCULAR HGB CONC 32.3 g/dL (33.0-36.5); MEAN CORPUSCULAR VOLUME 87.5 FL (78-98); MEAN PLATELET VOLUME 6.7 FL (7.4-10.4); MONOCYTES % (AUTO) 7.3 % (2-12); NEUTROPHILS # (AUTO) 11.5 X10'3 (1.8-7.7); NEUTROPHILS % (AUTO) 86.6 % (42-75); PLATELET COUNT 237 X10'3 (140-440); RED BLOOD COUNT 1.62 X10'6 (4.70-6.10); RED CELL DISTRIBUTION WIDTH 13.4 % (11.5-14.5); WHITE BLOOD COUNT 13.3 X10'3 (4.5-11.0)
[2023-08-19 17:18] LABS: HEMATOCRIT 14.2 % (42.0-52.0); HEMOGLOBIN 4.6 g/dl (14.0-17.9)
[2023-08-20] VITALS (7 sets, daily range): BP systolic 103–145; BP diastolic 48–76; PULSE 78–89; RESP 16–18; TEMP 97.5–98; O2SAT 97–100
[2023-08-20] MEDS: sodium ferric gluc complex inj 125 MG in normal saline 100ml IV soln 100 ML IV SCH ×2 (01:24→08:09)
[2023-08-20] MEDS: normal saline 1000ml 1,000 ML IV SCH ×3 (01:28→20:09)
[2023-08-20] MEDS: pantoprazole 40MG/NS 100ML BAG 100 ML IV SCH ×2 (07:38→19:56)
[2023-08-20] MEDS: docusate sod 100mg capsule PO SCH ×2 (08:21→20:01)
[2023-08-20] MEDS: ciprofloxacin lact 400MG/200ML 200 ML IV SCH ×2 (08:31→19:56)
[2023-08-20] MEDS: metroNIDAZOLE-Flagyl 500mg/NS 100 ML IV SCH ×2 (08:31→20:00)
[2023-08-20 08:41] LABS: BASOPHILS % (AUTO) 0.2 % (0-1); EOSINOPHILS # (AUTO) 0.1 X10'3 (0-0.9); EOSINOPHILS % (AUTO) 0.9 % (0-6); LYMPHOCYTES # (AUTO) 0.7 X10'3 (1.1-4.8); LYMPHOCYTES % (AUTO) 5.9 % (21-51); MEAN CORPUSCULAR HEMOGLOBIN 29.2 PG (27.0-31.0); MEAN CORPUSCULAR HGB CONC 32.9 g/dL (33.0-36.5); MEAN CORPUSCULAR VOLUME 88.7 FL (78-98); MONOCYTES # (AUTO) 0.9 X10'3 (0-0.9); NEUTROPHILS # (AUTO) 9.7 X10'3 (1.8-7.7); PLATELET COUNT 238 X10'3 (140-440); RED BLOOD COUNT 1.46 X10'6 (4.70-6.10); RED CELL DISTRIBUTION WIDTH 13.4 % (11.5-14.5); WHITE BLOOD COUNT 11.4 X10'3 (4.5-11.0)
[2023-08-20 08:45] LABS: HEMATOCRIT 12.9 % (42.0-52.0)
[2023-08-20 08:53] LABS: HEMOGLOBIN 4.3 g/dl (14.0-17.9)
[2023-08-20 08:57] LABS: ALANINE AMINOTRANSFERASE 19 U/L (12-78); ALBUMIN 1.6 G/DL (3.4-5.0); ALBUMIN/GLOBULIN RATIO 0.6 (1.1-1.5); ALKALINE PHOSPHATASE 92 IU/L (46-116); ANION GAP 10 (8-16); ASPARTATE AMINO TRANSFERASE 23 U/L (10-37); BILIRUBIN,TOTAL 0.2 MG/DL (0.1-1.0); BLOOD UREA NITROGEN 28 MG/DL (7-18); BUN/CREATININE RATIO 28.6 (10.0-20.0); CALCIUM 6.3 MG/DL (8.5-10.1); CHLORIDE 113 MMOL/L (99-107); CREATININE 0.98 MG/DL (0.60-1.10); GLUCOSE 76 MG/DL (70-104); SODIUM 141 MMOL/L (135-145); TOTAL CARBON DIOXIDE 18.2 MMOL/L (24-32); TOTAL PROTEIN 4.1 G/DL (6.4-8.2); eCRCL 65 ML/MIN; eGFR 74 ML/MIN
[2023-08-20 09:00] LABS: POTASSIUM 2.9 MMOL/L (3.5-5.1)
[2023-08-20] MEDS ORDERED: EPOETIN ALFA-EPBX 20,000 UNIT/ML 1 ML MDV SQ ONE (11:05)
[2023-08-20] MEDS: MULTIVIT-MIN/FERROUS GLUCONATE 9 MG/15 ML LIQUID PO SCH (12:52)
[2023-08-20] MEDS: folic acid 1mg tablet PO SCH (12:52)
[2023-08-20] MEDS ORDERED: FLU VACC QS2023-24(6MOS UP)/PF 60 MCG/0.5 ML SYRINGE IM ONE (13:00)
[2023-08-20] MEDS ORDERED: pneumococcal 23-VAL P-sac vacc 25 mcg/0.5ml vial IMVAC ONE (13:00)
[2023-08-20] MEDS: thiamine 100mg tablet PO SCH (20:01)
[2023-08-20 20:45] LABS: BASOPHILS % (AUTO) 0.2 % (0-1); EOSINOPHILS # (AUTO) 0.1 X10'3 (0-0.9); LYMPHOCYTES # (AUTO) 0.9 X10'3 (1.1-4.8)
[2023-08-20 20:46] LABS: LYMPHOCYTES % (AUTO) 6.4 % (21-51); MEAN CORPUSCULAR HEMOGLOBIN 28.8 PG (27.0-31.0); MEAN CORPUSCULAR HGB CONC 32.5 g/dL (33.0-36.5); MEAN CORPUSCULAR VOLUME 88.6 FL (78-98); MEAN PLATELET VOLUME 7.3 FL (7.4-10.4); MONOCYTES # (AUTO) 1.1 X10'3 (0-0.9); MONOCYTES % (AUTO) 8.2 % (2-12); NEUTROPHILS # (AUTO) 11.9 X10'3 (1.8-7.7); NEUTROPHILS % (AUTO) 84.2 % (42-75); PLATELET COUNT 280 X10'3 (140-440); RED BLOOD COUNT 1.71 X10'6 (4.70-6.10); RED CELL DISTRIBUTION WIDTH 13.3 % (11.5-14.5); WHITE BLOOD COUNT 14.1 X10'3 (4.5-11.0)
[2023-08-20 20:52] LABS: HEMOGLOBIN 4.9 g/dl (14.0-17.9)
[2023-08-20 20:53] LABS: HEMATOCRIT 15.2 % (42.0-52.0)
[2023-08-21] VITALS (8 sets, daily range): BP systolic 100–124; BP diastolic 54–60; PULSE 75–87; RESP 12–18; TEMP 97.4–98.3; O2SAT 98–100
[2023-08-21] MEDS: MULTIVIT-MIN/FERROUS GLUCONATE 9 MG/15 ML LIQUID PO SCH (07:30)
[2023-08-21] MEDS: thiamine 100mg tablet PO SCH ×2 (07:30→20:51)
[2023-08-21] MEDS: folic acid 1mg tablet PO SCH (07:30)
[2023-08-21] MEDS: docusate sod 100mg capsule PO SCH ×2 (07:30→20:49)
[2023-08-21] MEDS: pantoprazole 40MG/NS 100ML BAG 100 ML IV SCH ×2 (07:31→20:50)
[2023-08-21] MEDS: acetaminophen 325mg tablet PO PRN (07:37)
[2023-08-21] MEDS: metroNIDAZOLE-Flagyl 500mg/NS 100 ML IV SCH ×3 (07:38→20:49)
[2023-08-21] MEDS: ciprofloxacin lact 400MG/200ML 200 ML IV SCH ×3 (07:39→20:54)
[2023-08-21 07:48] LABS: BASOPHILS % (AUTO) 0.4 % (0-1); EOSINOPHILS # (AUTO) 0.2 X10'3 (0-0.9); EOSINOPHILS % (AUTO) 1.8 % (0-6); LYMPHOCYTES # (AUTO) 1.1 X10'3 (1.1-4.8); LYMPHOCYTES % (AUTO) 8.3 % (21-51); MEAN CORPUSCULAR HEMOGLOBIN 29.1 PG (27.0-31.0); MEAN CORPUSCULAR HGB CONC 33.1 g/dL (33.0-36.5); MEAN CORPUSCULAR VOLUME 87.8 FL (78-98); MEAN PLATELET VOLUME 7.3 FL (7.4-10.4); MONOCYTES # (AUTO) 1.1 X10'3 (0-0.9); MONOCYTES % (AUTO) 8.3 % (2-12); NEUTROPHILS # (AUTO) 10.4 X10'3 (1.8-7.7); NEUTROPHILS % (AUTO) 81.2 % (42-75); PLATELET COUNT 274 X10'3 (140-440); RED BLOOD COUNT 1.58 X10'6 (4.70-6.10); RED CELL DISTRIBUTION WIDTH 13.4 % (11.5-14.5); WHITE BLOOD COUNT 12.8 X10'3 (4.5-11.0)
[2023-08-21] MEDS: sodium ferric gluc complex inj 125 MG in normal saline 100ml IV soln 100 ML IV SCH (08:00)
[2023-08-21 08:01] LABS: HEMATOCRIT 13.9 % (42.0-52.0); HEMOGLOBIN 4.6 g/dl (14.0-17.9)
[2023-08-21 08:22] LABS: ALANINE AMINOTRANSFERASE 17 U/L (12-78); ALBUMIN 1.9 G/DL (3.4-5.0); ALBUMIN/GLOBULIN RATIO 0.7 (1.1-1.5); ALKALINE PHOSPHATASE 100 IU/L (46-116); ANION GAP 8 (8-16); ASPARTATE AMINO TRANSFERASE 11 U/L (10-37); BILIRUBIN,TOTAL 0.2 MG/DL (0.1-1.0); BLOOD UREA NITROGEN 32 MG/DL (7-18); BUN/CREATININE RATIO 26.9 (10.0-20.0); CALCIUM 7.5 MG/DL (8.5-10.1); CHLORIDE 108 MMOL/L (99-107); CREATININE 1.19 MG/DL (0.60-1.10); GLUCOSE 105 MG/DL (70-104); MAGNESIUM 1.5 MG/DL (1.5-2.4); PHOSPHORUS 2.6 MG/DL (2.3-4.5); POTASSIUM 3.9 MMOL/L (3.5-5.1); SODIUM 138 MMOL/L (135-145); TOTAL CARBON DIOXIDE 21.9 MMOL/L (24-32); TOTAL PROTEIN 4.7 G/DL (6.4-8.2); eCRCL 54 ML/MIN; eGFR 59 ML/MIN
[2023-08-21] MEDS: normal saline 1000ml 1,000 ML IV SCH ×2 (09:00→19:00)
[2023-08-21] MEDS: HYDROcodone/acetaminophen 5mg/325mg tablet PO PRN (11:11)
[2023-08-22] VITALS (7 sets, daily range): BP systolic 104–136; BP diastolic 59–71; PULSE 78–91; RESP 13–25; TEMP 97.6–98; O2SAT 95–100
[2023-08-22] MEDS: normal saline 1000ml 1,000 ML IV SCH ×2 (05:00→15:20)
[2023-08-22 08:36] LABS: MAGNESIUM 1.5 MG/DL (1.5-2.4); PHOSPHORUS 2.3 MG/DL (2.3-4.5)
[2023-08-22 08:38] LABS: ALANINE AMINOTRANSFERASE 19 U/L (12-78); ALBUMIN 1.8 G/DL (3.4-5.0); ALBUMIN/GLOBULIN RATIO 0.6 (1.1-1.5); ALKALINE PHOSPHATASE 99 IU/L (46-116); ANION GAP 7 (8-16); ASPARTATE AMINO TRANSFERASE 14 U/L (10-37); BILIRUBIN,TOTAL 0.2 MG/DL (0.1-1.0); BLOOD UREA NITROGEN 26 MG/DL (7-18); CALCIUM 7.4 MG/DL (8.5-10.1); CHLORIDE 107 MMOL/L (99-107); CREATININE 1.18 MG/DL (0.60-1.10); GLUCOSE 101 MG/DL (70-104); POTASSIUM 3.9 MMOL/L (3.5-5.1); SODIUM 137 MMOL/L (135-145); TOTAL CARBON DIOXIDE 22.7 MMOL/L (24-32); TOTAL PROTEIN 4.7 G/DL (6.4-8.2); eCRCL 54 ML/MIN; eGFR 59 ML/MIN
[2023-08-22] MEDS: HYDROcodone/acetaminophen 5mg/325mg tablet PO PRN (08:45)
[2023-08-22] MEDS: folic acid 1mg tablet PO SCH (08:46)
[2023-08-22] MEDS: MULTIVIT-MIN/FERROUS GLUCONATE 9 MG/15 ML LIQUID PO SCH (08:46)
[2023-08-22] MEDS: docusate sod 100mg capsule PO SCH ×2 (08:46→20:00)
[2023-08-22] MEDS: thiamine 100mg tablet PO SCH ×2 (08:47→20:00)
[2023-08-22] MEDS: pantoprazole 40MG/NS 100ML BAG 100 ML IV SCH ×2 (08:48→20:00)
[2023-08-22] MEDS: metroNIDAZOLE-Flagyl 500mg/NS 100 ML IV SCH ×2 (08:48→20:00)
[2023-08-22 08:59] LABS: BASOPHILS % (AUTO) 0.3 % (0-1); EOSINOPHILS # (AUTO) 0.3 X10'3 (0-0.9); EOSINOPHILS % (AUTO) 1.9 % (0-6); LYMPHOCYTES % (AUTO) 7.1 % (21-51); MEAN CORPUSCULAR HEMOGLOBIN 29.5 PG (27.0-31.0); MEAN CORPUSCULAR HGB CONC 32.9 g/dL (33.0-36.5); MEAN CORPUSCULAR VOLUME 89.5 FL (78-98); MEAN PLATELET VOLUME 7.3 FL (7.4-10.4); MONOCYTES # (AUTO) 1.1 X10'3 (0-0.9); MONOCYTES % (AUTO) 7.6 % (2-12); NEUTROPHILS # (AUTO) 12.3 X10'3 (1.8-7.7); NEUTROPHILS % (AUTO) 83.1 % (42-75); PLATELET COUNT 284 X10'3 (140-440); RED BLOOD COUNT 1.54 X10'6 (4.70-6.10); RED CELL DISTRIBUTION WIDTH 13.9 % (11.5-14.5); WHITE BLOOD COUNT 14.7 X10'3 (4.5-11.0)
[2023-08-22 09:07] LABS: HEMATOCRIT 13.8 % (42.0-52.0); HEMOGLOBIN 4.6 g/dl (14.0-17.9)
[2023-08-22] MEDS: acetaminophen 325mg tablet PO PRN (10:32)
[2023-08-22] MEDS: sodium ferric gluc complex inj 125 MG in normal saline 100ml IV soln 100 ML IV SCH (10:51)
[2023-08-22] MEDS: LORazepam 0.5 MG tablet PO PRN ×2 (11:51→18:10)
[2023-08-22] MEDS ORDERED: tranexamic acid inj. 1,000 MG in normal saline 100ml IV soln 100 ML IV ONE (12:35)
[2023-08-22] MEDS ORDERED: tranexamic acid inj. 1,000 MG in normal saline 100ml IV soln 90 ML IV ONE (12:44)
[2023-08-22] MEDS: HYDROcodone/acetaminophen 10/325mg tab PO PRN (14:41)
[2023-08-22] MEDS: ciprofloxacin lact 400MG/200ML 200 ML IV SCH (20:00)
[2023-08-23] VITALS (7 sets, daily range): BP systolic 86–155; BP diastolic 55–69; PULSE 77–97; RESP 16–20; TEMP 98.1–99.6; O2SAT 94–100
[2023-08-23] MEDS: normal saline 1000ml 1,000 ML IV SCH ×3 (01:04→21:00)
[2023-08-23] MEDS: pantoprazole 40MG/NS 100ML BAG 100 ML IV SCH ×2 (08:00→20:26)
[2023-08-23 08:43] LABS: BASOPHILS # (AUTO) 0.1 X10'3 (0-0.2); BASOPHILS % (AUTO) 0.4 % (0-1); EOSINOPHILS # (AUTO) 0.3 X10'3 (0-0.9); EOSINOPHILS % (AUTO) 2.2 % (0-6); LYMPHOCYTES # (AUTO) 1.1 X10'3 (1.1-4.8); LYMPHOCYTES % (AUTO) 7.9 % (21-51); MEAN CORPUSCULAR HEMOGLOBIN 29.2 PG (27.0-31.0); MEAN CORPUSCULAR HGB CONC 31.8 g/dL (33.0-36.5); MEAN CORPUSCULAR VOLUME 91.8 FL (78-98); MEAN PLATELET VOLUME 7.1 FL (7.4-10.4); MONOCYTES % (AUTO) 7.4 % (2-12); NEUTROPHILS # (AUTO) 11.5 X10'3 (1.8-7.7); NEUTROPHILS % (AUTO) 82.1 % (42-75); PLATELET COUNT 279 X10'3 (140-440); RED BLOOD COUNT 1.49 X10'6 (4.70-6.10); RED CELL DISTRIBUTION WIDTH 14.6 % (11.5-14.5)
[2023-08-23 08:47] LABS: HEMATOCRIT 13.7 % (42.0-52.0); HEMOGLOBIN 4.4 g/dl (14.0-17.9)
[2023-08-23] MEDS: HYDROcodone/acetaminophen 10/325mg tab PO PRN ×2 (08:52→13:00)
[2023-08-23] MEDS: MULTIVIT-MIN/FERROUS GLUCONATE 9 MG/15 ML LIQUID PO SCH (08:52)
[2023-08-23] MEDS: docusate sod 100mg capsule PO SCH ×2 (08:52→20:34)
[2023-08-23] MEDS: folic acid 1mg tablet PO SCH (08:53)
[2023-08-23] MEDS: metroNIDAZOLE-Flagyl 500mg/NS 100 ML IV SCH ×2 (08:53→20:34)
[2023-08-23] MEDS: thiamine 100mg tablet PO SCH ×2 (08:53→20:00)
[2023-08-23] MEDS: ciprofloxacin lact 400MG/200ML 200 ML IV SCH ×2 (08:53→20:34)
[2023-08-23 08:54] LABS: ALANINE AMINOTRANSFERASE 16 U/L (12-78); ALBUMIN 1.7 G/DL (3.4-5.0); ALBUMIN/GLOBULIN RATIO 0.6 (1.1-1.5); ALKALINE PHOSPHATASE 95 IU/L (46-116); ANION GAP 9 (8-16); ASPARTATE AMINO TRANSFERASE 14 U/L (10-37); BILIRUBIN,TOTAL 0.2 MG/DL (0.1-1.0); BLOOD UREA NITROGEN 27 MG/DL (7-18); BUN/CREATININE RATIO 21.3 (10.0-20.0); CHLORIDE 107 MMOL/L (99-107); CREATININE 1.27 MG/DL (0.60-1.10); GLUCOSE 98 MG/DL (70-104); MAGNESIUM 1.4 MG/DL (1.5-2.4); PHOSPHORUS 2.6 MG/DL (2.3-4.5); POTASSIUM 4.1 MMOL/L (3.5-5.1); SODIUM 140 MMOL/L (135-145); TOTAL CARBON DIOXIDE 24.1 MMOL/L (24-32); TOTAL PROTEIN 4.5 G/DL (6.4-8.2); eCRCL 51 ML/MIN; eGFR 55 ML/MIN
[2023-08-23 09:48] LABS: PLATELET ESTIMATE NORMAL
[2023-08-23 09:49] LABS: ANISOCYTOSIS FEW; HYPOCHROMASIA 1+; MICROCYTOSIS 1+; POLYCHROMASIA 1+; SPHEROCYTES FEW
[2023-08-23 09:50] LABS: BURR CELLS FEW; ELLIPTOCYTES FEW
[2023-08-23] MEDS: sodium ferric gluc complex inj 125 MG in normal saline 100ml IV soln 100 ML IV SCH (10:35)
[2023-08-23] MEDS: LORazepam 0.5 MG tablet PO PRN (16:06)
[2023-08-24] VITALS (7 sets, daily range): BP systolic 89–112; BP diastolic 50–64; PULSE 78–91; RESP 15–18; TEMP 97.5–98.3; O2SAT 94–100
[2023-08-24] MEDS: normal saline 1000ml 1,000 ML IV SCH ×3 (07:00→19:34)
[2023-08-24 08:18] LABS: BASOPHILS # (AUTO) 0.1 X10'3 (0-0.2); BASOPHILS % (AUTO) 0.3 % (0-1); EOSINOPHILS # (AUTO) 0.2 X10'3 (0-0.9); EOSINOPHILS % (AUTO) 1.4 % (0-6); LYMPHOCYTES # (AUTO) 0.9 X10'3 (1.1-4.8); MEAN CORPUSCULAR HEMOGLOBIN 30.1 PG (27.0-31.0); MEAN CORPUSCULAR HGB CONC 31.9 g/dL (33.0-36.5); MEAN CORPUSCULAR VOLUME 94.6 FL (78-98); MONOCYTES # (AUTO) 0.8 X10'3 (0-0.9); NEUTROPHILS # (AUTO) 13.8 X10'3 (1.8-7.7); NEUTROPHILS % (AUTO) 87.3 % (42-75); PLATELET COUNT 240 X10'3 (140-440); RED CELL DISTRIBUTION WIDTH 15.9 % (11.5-14.5); WHITE BLOOD COUNT 15.8 X10'3 (4.5-11.0)
[2023-08-24 08:28] LABS: HEMOGLOBIN 3.6 g/dl (14.0-17.9)
[2023-08-24 08:29] LABS: HEMATOCRIT 11.3 % (42.0-52.0)
[2023-08-24] MEDS: ciprofloxacin lact 400MG/200ML 200 ML IV SCH (08:29)
[2023-08-24] MEDS: HYDROcodone/acetaminophen 10/325mg tab PO PRN (08:29)
[2023-08-24] MEDS: metroNIDAZOLE-Flagyl 500mg/NS 100 ML IV SCH (08:29)
[2023-08-24] MEDS: MULTIVIT-MIN/FERROUS GLUCONATE 9 MG/15 ML LIQUID PO SCH (08:30)
[2023-08-24] MEDS: pantoprazole 40MG/NS 100ML BAG 100 ML IV SCH ×2 (08:30→20:46)
[2023-08-24] MEDS: docusate sod 100mg capsule PO SCH ×2 (08:30→20:45)
[2023-08-24] MEDS: thiamine 100mg tablet PO SCH ×2 (08:30→20:45)
[2023-08-24] MEDS: folic acid 1mg tablet PO SCH (08:30)
[2023-08-24 08:47] LABS: MAGNESIUM 1.6 MG/DL (1.5-2.4)
[2023-08-24] MEDS: sodium ferric gluc complex inj 125 MG in normal saline 100ml IV soln 100 ML IV SCH (11:02)
[2023-08-24] MEDS ORDERED: EPOETIN ALFA-EPBX 20,000 UNIT/ML 1 ML MDV SQ ONE (11:45)
[2023-08-25 02:00] VITALS: BP 94/58; PULSE 90; RESP 13; TEMP 97.6; O2SAT 95
[2023-08-25] MEDS: normal saline 1000ml 1,000 ML IV SCH (05:26)
[2023-08-25 06:00] VITALS: BP 109/60; PULSE 82; RESP 16; TEMP 97.9; O2SAT 98
[2023-08-25 07:20] LABS: BASOPHILS # (AUTO) 0.1 X10'3 (0-0.2); BASOPHILS % (AUTO) 0.4 % (0-1); EOSINOPHILS # (AUTO) 0.2 X10'3 (0-0.9); EOSINOPHILS % (AUTO) 1.1 % (0-6); LYMPHOCYTES # (AUTO) 0.9 X10'3 (1.1-4.8); LYMPHOCYTES % (AUTO) 6.5 % (21-51); MEAN CORPUSCULAR HGB CONC 31.8 g/dL (33.0-36.5); MEAN CORPUSCULAR VOLUME 97.5 FL (78-98); MEAN PLATELET VOLUME 7.1 FL (7.4-10.4); MONOCYTES % (AUTO) 6.8 % (2-12); NEUTROPHILS # (AUTO) 12.3 X10'3 (1.8-7.7); NEUTROPHILS % (AUTO) 85.2 % (42-75); PLATELET COUNT 263 X10'3 (140-440); RED BLOOD COUNT 1.19 X10'6 (4.70-6.10); RED CELL DISTRIBUTION WIDTH 21.8 % (11.5-14.5); WHITE BLOOD COUNT 14.4 X10'3 (4.5-11.0)
[2023-08-25 07:44] LABS: HEMOGLOBIN 3.7 g/dl (14.0-17.9)
[2023-08-25 07:45] LABS: HEMATOCRIT 11.6 % (42.0-52.0)
[2023-08-25 07:55] LABS: MAGNESIUM 1.7 MG/DL (1.5-2.4); PHOSPHORUS 3.1 MG/DL (2.3-4.5)
[2023-08-25] MEDS: folic acid 1mg tablet PO SCH (08:00)
[2023-08-25] MEDS: sodium ferric gluc complex inj 125 MG in normal saline 100ml IV soln 100 ML IV SCH (08:00)
[2023-08-25] MEDS: pantoprazole 40MG/NS 100ML BAG 100 ML IV SCH (08:00)
[2023-08-25] MEDS: MULTIVIT-MIN/FERROUS GLUCONATE 9 MG/15 ML LIQUID PO SCH (09:41)
[2023-08-25] MEDS: docusate sod 100mg capsule PO SCH (09:41)
[2023-08-25] MEDS: thiamine 100mg tablet PO SCH (09:41)
== END 2023-08-25 11:45 | disposition hospice, home (50) | DRG 377 ==
LOC: ER 23:41 → ED HOLD 08-18 01:04 → PCU 3S 08-18 19:55
PROVIDERS: ADMIT Internal Medicine; ATTEND Family Medicine
PROC: 0DB68ZX Excision of Stomach, Via Natural or Artificial Opening Endoscopic, Diagnostic (ICD-10-PCS; principal; 2023-08-18)
PROC: 0DB78ZX Excision of Stomach, Pylorus, Via Natural or Artificial Opening Endoscopic, Diagnostic (ICD-10-PCS; 2023-08-18)
PROC: 0DB68ZZ Excision of Stomach, Via Natural or Artificial Opening Endoscopic (ICD-10-PCS; 2023-08-18)
PROC: CD171ZZ Planar Nuclear Medicine Imaging of Gastrointestinal Tract using Technetium 99m (Tc-99m) (ICD-10-PCS; 2023-08-20)
PROC: CD171ZZ Planar Nuclear Medicine Imaging of Gastrointestinal Tract using Technetium 99m (Tc-99m) (ICD-10-PCS; 2023-08-21)
DX: K92.2 Gastrointestinal hemorrhage, unspecified (principal); K21.01 Gastro-esophageal reflux disease with esophagitis, with bleeding; R65.11 Systemic inflammatory response syndrome (SIRS) of non-infectious origin with acute organ dysfunction; N13.6 Pyonephrosis; N17.9 Acute kidney failure, unspecified; D62 Acute posthemorrhagic anemia; Z66 Do not resuscitate; K26.4 Chronic or unspecified duodenal ulcer with hemorrhage; N18.30 Chronic kidney disease, stage 3 unspecified; Z20.822 Contact with and (suspected) exposure to COVID-19; I12.9 Hypertensive chronic kidney disease with stage 1 through stage 4 chronic kidney disease, or unspecified chronic kidney disease; K31.7 Polyp of stomach and duodenum; K21.9 Gastro-esophageal reflux disease without esophagitis; E87.6 Hypokalemia; E88.09 Other disorders of plasma-protein metabolism, not elsewhere classified; G89.29 Other chronic pain; M54.9 Dorsalgia, unspecified; E83.51 Hypocalcemia; Z98.1 Arthrodesis status; Z79.899 Other long term (current) drug therapy; Z87.891 Personal history of nicotine dependence; K29.70 Gastritis, unspecified, without bleeding
CPT/HCPCS: 36415; 43239; 43251; 71045; 74176; 78278; 80053; 81001; 83605; 83735; 84100; 84145; 85008; 85025; 85610; 86885; 86900; 86901; 87040; 87081; 87088; 87811; 88305; 88342; 90686; 90732; 97110; 97161; 97530; 99152; 99285; A4615; A4620; A5200; A6213; A6258; A9560; C1889; C9113; G0378; J0696; J0744; J2250; J2916; J3010; J3490; J7030; J7040; Q4081

== ENCOUNTER 2023-10-05 14:56 | Emergency (ER) | payer MEDICARE, MEDICAID ==
[~2023-10-05] VITALS: Ht 180.3 cm; Wt 50.0 kg
[~2023-10-05 14:56] MED LIST changes: -AMLO5TAB16 PO; -CEFD300C3 PO; +LISI10TA27 PO; -NO HOME MEDS; -PHEN-824 PO
[2023-10-05] MEDS: LidoCAINE 2% Topical Jelly 11mL syringe TOP ONE (15:46)
[2023-10-05 21:14] VITALS: BP 107/74; PULSE 83; RESP 16; TEMP 97.8; O2SAT 98
== END 2023-10-05 21:26 | disposition home or self-care (01) ==
LOC: ER 14:57
DX: R33.9 Retention of urine, unspecified (principal); I10 Essential (primary) hypertension; K72.90 Hepatic failure, unspecified without coma
CPT/HCPCS: 51701; 99283